=== PATIENT | female | born 1990 | race Caucasian/White ===

== ENCOUNTER 2019-07-03 01:35 | Emergency (ER) | payer SELFPAY ==
[~2019-07-03] VITALS: Ht 165.1 cm; Wt 82.1 kg
[2019-07-03 01:38] VITALS: BP 136/78
--- NOTE | 2019-07-03 01:39 | NUR ---
PT TAKEN TO BED 7
--- NOTE | 2019-07-03 01:49 | NUR ---
PT C/O RAPID HEART BEAT S/P CONSUMING 8 SARY BOMBS W/ CAFFEINE OVER 3 HR PERIOD HR NORMAL RATE, NORMAL RHYTHM. RR EVEN AND UNLABORED. PT IN NO DISTRESS AT THIS TIME. VSS. MEDHX: DENIES ALLERGIES: DENIES
--- NOTE | 2019-07-03 01:53 | NUR ---
EMT AT BEDSIDE PERFORMING EKG.
--- NOTE | 2019-07-03 02:01 | NUR ---
Dr. Echevarria examining patient.
--- NOTE | 2019-07-03 02:30 | NUR ---
PT STATES INCREASING ANXIETY. MD MADE AWARE. VSS AT THIS TIME. WILL CONTINUE TO MONITOR.
[2019-07-03] MEDS ORDERED: LORazepam 1 MG TAB PO ONE (02:35)
--- NOTE | 2019-07-03 03:03 | NUR ---
Patient discharged with v/s stable. Written and verbal after care instructions given and explained. Patient alert, oriented and verbalized understanding of instructions. Ambulatory with to home. All questions addressed prior to discharge. ID band removed. Patient advised to follow up with PMD. Rx of ATARAX 25MG given. Patient educated on indication of medication including possible reaction and side effects. Opportunity to ask questions provided and answered.
[2019-07-03 03:04] VITALS: BP 136/78
== END 2019-07-03 03:03 | disposition home or self-care (01) ==
LOC: MED 01:35
DX: R00.2 Palpitations (principal); R07.89 Other chest pain; F17.200 Nicotine dependence, unspecified, uncomplicated
CPT/HCPCS: 93005; 99283